=== PATIENT | female | born 1950 | race African-American/Black ===

== ENCOUNTER 2017-02-16 09:08 | Observation (INO) ==
--- NOTE | 2017-02-16 09:34 | Emergency Department Note ---
START Narrative - START START: I examined this patient and my medical decision-making was reviewed with the ROLLER SKATE ASSEMBLER/PA/Advanced Practice Nurse/Resident Physician. I agree with the documented findings, disposition and treatment plan as described except to the extent set forth below. The patient does have a history of atrial fibrillation however is not taking anticoagulation and presents per EMS. I did see the patient immediately upon arrival and also spoke with the paramedics. Did have a five-minute episode which started just after 8:00 which involved the left arm feelling like rubber, similar feelings the left leg and then she decided to start speaking and see if raad was abnormal and she did have slurred speech. She did have some lightheadedness during this period - max duration of symptoms was 5 minutes and she is almost 100% back to normal except for the fact that the left arm does still feel "funny". She is speaking normally without slurred speech, there is no drift of the arms or legs and she does have sensation intact. Finger to nose testing is equal and normal 2. Symptoms most consistent with TIA and patient does have tests ordered including labs, head CT. I did review her EKG which does show normal sinus rhythm with rate of 70 without acute ischemic change. 0932 CT scan does show possible infarct but no hemorrhage. The patient is admitted for further evaluation and management of TIA. Patient is not a thrombolytic candidate as the patient does have a stroke scale of 0 and subjectively symptoms have almost completely resolved 1116
[2017-02-16 09:43] LABS: Hematocrit 38.9 % (35.3-44.9); Hemoglobin 12.1 g/dL (11.5-15.4); Mean Corpuscular HGB Conc 31.1 g/dL (31.6-35.5); Mean Corpuscular Hemoglobin 24.2 pg (28.0-33.3); Mean Platelet Volume 9.9 fL (9.4-12.4); Platelet Count 256 K/mcL (140-400); Red Blood Count 4.99 M/mcL (3.82-4.97); Red Cell Distribution Width 15.3 % (11.5-14.5)
[2017-02-16 09:54] LABS: BUN/Creatinine Ratio 15 (6-26); Blood Urea Nitrogen 12 mg/dL (7-20); Calcium 8.6 mg/dL (8.6-10.8); Carbon Dioxide 25 mEq/L (19-29); Chloride 106 mEq/L (98-109); Glucose 119 mg/dL (70-99); Osmolality,Calculated 287 (280-300); Potassium 4.1 mEq/L (3.5-4.5); Sodium 138 mEq/L (136-145); eGFR For African Americans > 60 (> 60); eGFR For Non-African Americans > 60 (> 60)
--- NOTE | 2017-02-16 11:21 | Emergency Department Note ---
Disposition Clinical Impression: Cerebrovascular accident Qualifiers: CVA mechanism: unspecified Qualified Code(s): I63.9 - Cerebral infarction, unspecified Atrial fibrillation Qualifiers: Atrial fibrillation type: unspecified Qualified Code(s): I48.91 - Unspecified atrial fibrillation Disposition: Admitted As Inpatient Condition: Fair Neuro HPI - General Chief Complaint: ED Dizziness Stated Complaint: dizzy/weak x 5 mins Time Seen by Provider: 02/16/17 09:16 Source: patient, EMS Limitations: no limitations - History of Present Illness HPI Narrative: Mrs. Guzman is a 66-year-old female presents with left-sided weakness that began 8:00 this morning. Patient has weakness to left arm and left leg. Patient states that she attempted to lift her left arm and it felt like rubber following back and hitting her left leg. Patient spoke and noticed that she was slurring her words. She attempted to climb her stairs and fell as result of left leg weakness. Patient also admits right facial drooping. Patient called EMS was transported to the ED. She states that her symptoms have begun to resolve. Although, she has residual numbness to the left arm and left leg and residual weakness left arm and left leg. She denies any blurry vision or changes to vision. She is past medical history significant for A. fib that is untreated, cardiac murmur, hypertension, former smoker of 20 pack years. Her only medications are a daily baby aspirin. - Related Data Home Medications: Home Medications Medication Instructions Recorded Confirmed Aspirin Enteric Coated [Aspirin EC] 81 mg PO DAILY 02/24/16 02/16/17 Calcium Carbonate/Vitamin D3 1 tab PO DAILY 02/24/16 02/16/17 [Calcium 500+D Tablet Chew] Amlodipine Besylate 2.5 mg PO DAILY 02/16/17 02/16/17 Multivitamin [Multi-Day Vitamins] 1 tab PO DAILY 02/16/17 02/16/17 Allergies/Adverse Reactions: Allergies Allergy/AdvReac Type Severity Reaction Status Date / Time doxycycline Allergy Gastrointestinal Verified 02/24/16 16:45 Upset metoclopramide [From Reglan] Allergy Gastrointestinal Verified 02/24/16 16:45 Upset Penicillins Allergy Hives Verified 02/24/16 16:45 All systems ED: reviewed and negative except as stated. Constitutional: Reports: as per HPI Eyes: Reports: as per HPI ENT ED: Reports: as per HPI Cardiovascular: Reports: as per HPI Respiratory: Reports: as per HPI Gastrointestinal: Reports: as per HPI Genitourinary: Reports: as per HPI Musculoskeletal: Reports: as per HPI Integumentary: Reports: as per HPI Neurological: Reports: as per HPI Psychiatric: Reports: as per HPI Endocrine: Reports: as per HPI Hematological/Lymphatic: Reports: as per HPI Allergic/Immunologic: Reports: as per HPI Past Medical History - Past Medical History Medical history: Reports: atrial fibrillation, hypertension Psychiatric history: Reports: no psych history - Social History Smoking Status: Never smoker Smokeless Tobacco Status: No Alcohol use: Reports: none Drug use: Reports: none Physical Exam - General Limitations: no limitations General appearance: alert, in no apparent distress - Head Head exam: atraumatic, normocephalic - Eye Eye exam: Present: normal appearance, PERRL, EOMI - Neck Neck exam: Present: normal inspection, full ROM, trachea midline - Chest Chest inspection: Present: normal inspection, symmetric chest wall rise - Respiratory Respiratory exam: Present: normal lung sounds bilaterally. Absent: respiratory distress - Cardiovascular Cardiovascular exam: Present: irregular rhythm - Abdominal Exam Abdominal exam: Present: soft, Non-Tender - Neurological Exam Neurological exam: Present: alert, oriented X3, CN II-XII intact, motor sensory deficit, other (NIH stroke scale score is 0. ) - Expanded Neurological Exam Patient oriented to: Present: person, place, time Speech: Present: fluid speech Cranial nerves: EOM function (II, III, IV, ): Normal, facial sensation (V): Normal, facial palsy (VII): Normal, gag reflex (IX): Normal, spinal accessory function (XI): Normal, tongue deviation (XII): Normal Cerebellar function: finger to nose: Normal Motor strength - LUE: 3/5 Motor strength - RUE: 5/5 Motor strength - LLE: 3/5 Motor strength - RLE: 5/5 Upper motor neuron exam: Babinski sign: Absent bilaterally Sensory exam upper extremity: light touch: Abnormal Left Sensory exam lower extremity: light touch: Abnormal Left Coma Scale Eye Opening: Spontaneous Coma Scale Motor Response: Obeys Commands Coma Scale Verbal Response: Oriented Coma Scale Total: 15 - Psychiatric Psychiatric exam: Present: normal affect, normal mood - Skin Skin exam: Present: warm, dry, intact Course Vital Signs Temperature 98.4 F 02/16/17 09:09 Pulse Rate 77 02/16/17 09:09 Respiratory Rate 18 02/16/17 09:09 Blood Pressure 186/81 02/16/17 09:09 O2 Sat by Pulse Oximetry 98 02/16/17 09:09 Temperature 98.4 F 02/16/17 09:09 Pulse Rate 65 02/16/17 11:16 Respiratory Rate 18 02/16/17 12:23 Blood Pressure 159/76 02/16/17 12:23 O2 Sat by Pulse Oximetry 98 02/16/17 11:16 Oxygen Delivery Oxygen Delivery Room Air Neuro Symptoms/Deficit - MDM Narrative Medical decision making narrative: Patient does have left sided weakness on exam and CT head demonstrates a right parietal lobe infarct. Patient is not a candidate for TPA given her stroke scale score is 0. She will require admission for workup of etiology of CVA. She does have known A. fib which is untreated. There is concern that A. fib may have contributed to her CVA. - Lab Data Lab results reviewed: Yes I reviewed the patient's lab results. Result diagrams: 02/16/17 09:36 02/16/17 09:36 Lab Results 02/16/17 02/16/17 02/16/17 Range/Units 09:14 09:36 09:36 WBC (4.3-11.1) K/mcL RBC (3.82-4.97) M/mcL Hgb (11.5-15.4) g/dL Hct (35.3-44.9) % MCV (83.0-100.0) fL MCH (28.0-33.3) pg MCHC (31.6-35.5) g/dL RDW (11.5-14.5) % Plt Count (140-400) K/mcL MPV (9.4-12.4) fL Sodium 138 (136-145) mEq/L Potassium 4.1 (3.5-4.5) mEq/L Chloride 106 (98-109) mEq/L Carbon Dioxide 25 (19-29) mEq/L BUN 12 (7-20) mg/dL Creatinine 0.81 (0.57-1.11) mg/dL Est GFR ( Amer) > 60 (> 60) Est GFR (Non-Af Amer) > 60 (> 60) BUN/Creatinine Ratio 15 (6-26) Glucose 119 H (70-99) mg/dL POC Glucose 99 H (58-89) Est Mean Plasma Glucose mg/dl Hemoglobin A1c ( - 5.6) % Calculated Osmolality 287 (280-300) Calcium 8.6 (8.6-10.8) mg/dL Troponin I 0.00 (0-0.03) ng/mL 02/16/17 02/16/17 Range/Units 09:36 09:39 WBC 5.4 (4.3-11.1) K/mcL RBC 4.99 H (3.82-4.97) M/mcL Hgb 12.1 (11.5-15.4) g/dL Hct 38.9 (35.3-44.9) % MCV 78.0 L (83.0-100.0) fL MCH 24.2 L (28.0-33.3) pg MCHC 31.1 L (31.6-35.5) g/dL RDW 15.3 H (11.5-14.5) % Plt Count 256 (140-400) K/mcL MPV 9.9 (9.4-12.4) fL Sodium (136-145) mEq/L Potassium (3.5-4.5) mEq/L Chloride (98-109) mEq/L Carbon Dioxide (19-29) mEq/L BUN (7-20) mg/dL Creatinine (0.57-1.11) mg/dL Est GFR ( Amer) (> 60) Est GFR (Non-Af Amer) (> 60) BUN/Creatinine Ratio (6-26) Glucose (70-99) mg/dL POC Glucose (58-89) Est Mean Plasma Glucose 120 mg/dl Hemoglobin A1c 5.8 H ( - 5.6) % Calculated Osmolality (280-300) Calcium (8.6-10.8) mg/dL Troponin I (0-0.03) ng/mL - Radiology Data Radiology results reviewed: Yes I reviewed the patient's radiology results. Chest X-Ray 02/16/17 09:18 IMPRESSION: Mild left basilar atelectasis with no other acute cardiopulmonary findings. D/ / Raquel Dorsey MD / Raquel Dorsey MD Interpreting Provider: Raquel Dorsey MD Head CT 02/16/17 09:18 IMPRESSION: Minor low-density focus in the right parietal lobe could represent a small infarct. No evidence of hemorrhage. Brain MRI could be performed for confirmation if clinically warranted. D/ / Selvin Brandon MD / Selvin Brandon MD Interpreting Provider: Selvin Brandon MD - EKG Data EKG attestation: Yes I reviewed and interpreted this EKG. EKG results narrative: EKG normal sinus rhythm at a rate of 70 bpm. Left axis deviation. No ST segment changes to suggest ischemia. TPA Checklist - LKW: 3-4.5 hrs Add. Contraindications Patient/family understanding: The patient/family members have been counseled and understood the risk, benefit , and alternatives of treatment.
[2017-02-16] MEDS ORDERED: Naloxone 0.4 MG/ML INJ IVP PRN (11:36)
[2017-02-16] MEDS ORDERED: Ondansetron ODT 4 MG TAB.RAPDIS SL PRN (11:36)
[2017-02-16] MEDS ORDERED: Aspirin Enteric Coated 81 MG Tablet PO SCH (11:45)
[2017-02-16 12:03] LABS: Hemoglobin A1C 5.8 %
--- NOTE | 2017-02-16 12:22 | Internal Med History&Physical ---
<Rehman,Traci Luc - Last Filed: 02/16/17 12:19> Date of Encounter: 02/16/17 Time of Encounter: 12:19 Assessment and Plan (1) Cerebrovascular accident Current visit: Yes Status: Acute with one episode of right facial droop, left sided weakness and slurred speech. All symptoms resolved prior to arrival to ED. Head CT with possible right parietal infarct, no hemorrhage. Continue home ASA, and statin if needed. Brain MRI, echo, TSH LDL and Hgb A1c pending. Permissive HTN. Neurology consulted. Qualifiers: CVA mechanism: unspecified Qualified Code(s): I63.9 - Cerebral infarction, unspecified (2) PFO (patent foramen ovale) Current visit: Yes Status: Acute History of congenital heart defect repaired at 14 years old. 11/2015 echo with right left shunt consistent with PFO. Discussed with neurology and will hold anticoagulation at this time. Continue home aspirin. Repeat echo pending. CTS consulted. (3) Hypertension Current visit: Yes Status: Acute Per history. BP elevated in ED, we will continue to hold home BP medications to allow for permissive hypertension. Add when necessary IV for SBP greater than 200. Resume home BP meds and 24-48 hours. Qualifiers: Hypertension type: essential hypertension Qualified Code(s): I10 - Essential (primary) hypertension (4) DVT prophylaxis Current visit: Yes Status: Acute [facility] Internal Medicine - H&P: HPI Chief complaint: Left-sided weakness slurred speech and right facial droop Admitted From: Home Plans for Post Hospital Care: Home History of present illness: Ms. Guzman is a 66 year old female ast medical history hypertension and congenital heart defect who presented to [facility] on 2016 with with complaint of left-sided weakness slurred speech and right facial droop. Head CT showed possible parietal infarct. She was placed in observation for CVA workup and neurology consultation. Information obtained from chart review and patient report. Patient reports acute onset of left- sided weakness to left arm and left leg with slurred speech and right facial droop. This episode lasted for approximately 5 minutes, occurred at 0800 on day of presentation and all symptoms resolved prior to arrival. She also reports an episode of chest tightness located to left upper chest related 3 out of 10 at that time sensation did not radiate nothing made better or worse says tightness resolved on its own. All my exam she has no complaints she says she feels back to baseline specifically denies chest pain no shortness of breath no abdominal pain and nausea vomiting diarrhea no numbness tingling or weakness no blurred or double vision Past Med Surg Social Fam HX - Past Medical History Medical history: atrial fibrillation, hypertension Psychiatric history: no psych history - Past Surgical History Surgical History: other (Congenital heart defect repaired at 14 years old) - Social History Smoking Status: Never smoker Smokeless Tobacco Status: No Alcohol use: none Drug use: none Internal Medicine - H&P: Meds Aspirin Enteric Coated [Aspirin EC] 81 mg PO DAILY 02/24/16 [History] Calcium Carbonate/Vitamin D3 [Calcium 500+D Tablet Chew] 1 tab PO DAILY [History] Amlodipine Besylate 2.5 mg PO DAILY 02/16/17 [History] Multivitamin [Multi-Day Vitamins] 1 tab PO DAILY 02/16/17 [History] Allergies doxycycline Allergy (Verified 02/24/16 16:45) Gastrointestinal Upset metoclopramide [From Reglan] Allergy (Verified 02/24/16 16:45) Gastrointestinal Upset Penicillins Allergy (Verified 02/24/16 16:45) Hives All Systems PM: A 10-system review of systems was performed and is negative for pertinent findings except as documented above in the HPI. - Constitutional Constitutional: no chills, no fever(s), no night sweats - EENT Eyes: no change in vision, no discharge, no pain, no photophobia Ears: no ear discharge, no ear pain, no tinnitus Nose, mouth and throat: no dysphagia, no nasal discharge, no neck pain, no sore throat - Cardiovascular Cardiovascular ROS IM: no chest pain, no diaphoresis, no dyspnea, no lightheadedness, no palpitations, no syncope - Respiratory Respiratory: no cough, no dyspnea, no wheezing, no excessive phlegm production - Gastrointestinal Gastrointestinal: no abdominal pain, no diarrhea, no hematemesis, no hematochezia, no melena, no nausea, no vomiting - Genitourinary Genitourinary: no change in urinary stream, no dysuria, no flank pain, no hematuria - Musculoskeletal Musculoskeletal ROS IM: no numbness, no tingling - Integumentary Integumentary IM: no rash, no unusual bruising - Neurological Neurological ROS: no confusion, no convulsions, no focal weakness, no numbness, no tingling, no tremor(s) - Hematologic/Lymphatic Hematologic/Lymphatic: no easy bruising - Constitutional Vitals: Temp Pulse Resp BP Pulse Ox 98.4 F 65 18 160/72 98 02/16/17 09:09 02/16/17 11:16 02/16/17 11:16 02/16/17 11:16 02/16/17 11:16 General appearance: Present: A&O X 3, no acute distress - Head Head exam: Present: atraumatic, normocephalic - Eye Eye exam: Present: PERRL, conjuntiva pink, sclera anicteric Pupils: Present: PERRL - Neck Neck exam general surgery: Present: supple, trachea midline. Absent: lymphadenopathy - Respiratory Respiratory exam: Present: CTAB. Absent: accessory muscle use, rales, rhonchi, wheezes - Cardiovascular Cardiovascular exam: Present: RRR, +S1, +S2. Absent: diastolic murmur, gallop, rubs, systolic murmur - GI/Abdominal GI/Abdominal exam: Present: normal bowel sounds, soft, no peritoneal signs. Absent: distended, tenderness - Extremities Exam Extremities exam: Present: warm, radial pulses palpable and symetrical. Absent : calf tenderness, cyanotic, pedal edema - Neurological Exam Neurological exam: Present: CN II-XII intact, oriented X3, no focal deficits. Absent: pronater drift, facial droop, speech deficit - Skin Skin exam: Present: dry, intact Internal Med - H&P Results - Labs CBC & Chem 7: 02/16/17 09:36 02/16/17 09:36 - EKG Data -: EKG Interpreted by Myself EKG shows normal: sinus rhythm <Christopher Disla H - Last Filed: 02/16/17 12:59> Date of Encounter: 02/16/17 Internal Medicine - H&P: HPI History of present illness: Ms. Guzman is a 66 year old female All Systems PM: A 10-system review of systems was performed and is negative for pertinent findings except as documented above in the HPI. - Constitutional Vitals: Temp Pulse Resp BP Pulse Ox 98.4 F 65 18 159/76 98 02/16/17 09:09 02/16/17 11:16 02/16/17 12:23 02/16/17 12:23 02/16/17 11:16 Internal Med - H&P Results - Labs CBC & Chem 7: 02/16/17 09:36 02/16/17 09:36 - Attending Attestation 1) acute ischemic CVA possibly secondary to PFO Order MRI COnsult Cardiothoracic surgery ASA, consider anticoagulation. 2) HTN permissive HTN I examined this patient and my medical decision-making was reviewed with the COMMUNITY MENTAL HEALTH SOCIAL WORKER/PA/Advanced Practice Nurse/Resident Physician. I agree with the documented findings, disposition and treatment plan as described except to the extent set forth below.
[2017-02-16] MEDS ORDERED: Aspirin 81 MG TAB.CHEW PO ONE (12:38)
--- NOTE | 2017-02-16 14:22 | Electrocardiograph Report ---
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
--- NOTE | 2017-02-16 14:29 | Neurology - Consult Note ---
Date of Encounter: 02/16/17 Time of Encounter: 14:27 Assessment and Plan (1) Cerebrovascular accident Current Visit: Yes Status: Acute This patient has indeed suffered an acute right parietal lobe infarct. She does have a history of atrial fibrillation as well as patent foramen ovale and atrial septal defect. It is very possible that this may have been an embolic event. However her MRI scan suggests microvascular ischemic change and may have been due to small vessel disease. She does have a history of hypertension. He denies diabetes denies cigarette smoking. She does take an aspirin daily. Apparently a decision has been made to transfer her to the [facility] to consider repair of the atrial septal defect. Certainly risk factor management is paramount. She has been given an adult aspirin. She is currently awaiting a bed to be transferred to the [facility]. At this time she is awake alert and stable. The documentation in the history of HPI and plan were at least partially created by [employer] voice recognition technology by Dr. Santana. Errors in grammar, wording or other phrases may exist. If errors are found after the documentation signed, they will be addressed individually in the addendum section of this document when appropriate. Qualifiers: CVA mechanism: unspecified Qualified Code(s): I63.9 - Cerebral infarction, unspecified History of Present Illness HPI: Ms. Guzman is a 66 year old female who is being seen for neurologic consultation secondary to sudden onset numbness and paresthesias of the left face arm and leg. She does have a known congenital heart defect or believe she has a patent foramen ovale as well as an atrial septal defect. Symptoms were sudden in onset. Her blood pressure was 186/81. Does have a history of atrial fibrillation however is not on anticoagulation. Currently she is alert and oriented and still has some residual paresthesias in the left arm and leg however her strength has returned. She has a very mild headache. Denies diabetes, she is not smoking over 20 years. She only takes amlodipine for blood pressure. Apparently she has been seen by cardiothoracic surgeon and have recommended transferring her to [facility] for further intervention. 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 Past Med Surg Social Fam HX - Past Medical History Medical history: atrial fibrillation, hypertension Psychiatric history: no psych history - Past Surgical History Surgical History: coronary bypass (CABG), other - Social History Smoking Status: Never smoker Smokeless Tobacco Status: No Alcohol use: none Drug use: none - Family History Father Living Status: Hx Family Cardiac Disorders: Yes Hx Family Respiratory Disorders: No Hx Family Cancer: No Hx Family GI Disorders: No Hx Family Genitourinary Disorders: No Hx Family Endocrine Disorder: Yes Hx Family Musculoskeletal Disorders: No Hx Family Neuromuscular Disorders: No Hx Family Neurologic Disorders: No Hx Family HEENT Disorders: No Hx Family Autoimmune Disorders: No Hx Family Reproductive Disorders: No Hx Family Psychosocial Disorders: No Hx Family Medical Disorders: No Medications and Allergies Aspirin Enteric Coated [Aspirin EC] 81 mg PO DAILY 02/24/16 [History] Calcium Carbonate/Vitamin D3 [Calcium 500+D Tablet Chew] 1 tab PO DAILY [History] Amlodipine Besylate 2.5 mg PO DAILY 02/16/17 [History] Multivitamin [Multi-Day Vitamins] 1 tab PO DAILY 02/16/17 [History] Allergies doxycycline Allergy (Verified 02/24/16 16:45) Gastrointestinal Upset metoclopramide [From Reglan] Allergy (Verified 02/24/16 16:45) Gastrointestinal Upset Penicillins Allergy (Verified 02/24/16 16:45) Hives All Systems: A 10-system review of systems was performed and is negative for pertinent findings except as documented above in the HPI. Review of Systems: Review of systems is consistent with a history of present illness and otherwise negative. Physical Examination - Vital Signs Vital Signs: Initial Vital Signs Temp Pulse Resp BP Pulse Ox 98.4 F 77 18 186/81 98 02/16/17 09:09 02/16/17 09:09 02/16/17 09:09 02/16/17 09:09 02/16/17 09:09 - Neurologic Sensorimotor examination: other Detailed motor examination: full strength in all major muscle groups Motor examination - right side: 5/5: deltoids, biceps, triceps, wrist flexion, wrist extension, projection welding machine operator, hip flexors, tibialis Anterior, quadriceps, toe extension (EHL), plantarflexion Motor examination - left side: 5/5: deltoids, biceps, triceps, wrist flexion, wrist extension, hip flexors, projection welding machine operator, quadriceps, tibialis Anterior, toe extension (EHL), plantarflexion Detailed sensory examination: other (There is hemihypesthesia of the left face arm and leg.) Reflexes: Biceps: 2+ (Symmetrically), Triceps: 2+ (Symmetrically), Brachioradialis: 2+ (Symmetrical), Patella: 2+ (Symmetrically), Achilles: 2+ ( Symmetrically) Mental Status Examination: awake, alert, oriented to person, oriented to place, oriented to time, follows commands appropriately, answers questions appropriately, no agnosia, no aphasia, no aproxia Cranial nerve examination: PERRL, EOMI, visual knowles intact, corneal reflexes brisk symmetrically, sensory to face intact, mastication intact, no facial asymmetry is present, no dysarthria, hearing is intact symmetrically, soft palate elevates bilaterally upon phonation, gag reflex intact, flexes SCM and trapezius muscles symmetrically with full power, tongue protrudes midline, no atrophy or facial fasiculations present Cerebellar examination: no dysmetria, performs finger to nose and heel to starr symmetrically without ataxia, no gait ataxia, no truncal ataxia, no difficulty with rapid alternating movements Results - Laboratory Findings CBC and BMP: 02/16/17 09:36 02/16/17 09:36 Abnormal lab findings: Abnormal lab results RBC 4.99 M/mcL (3.82-4.97) H 02/16/17 09:36 MCV 78.0 fL (83.0-100.0) L 02/16/17 09:36 MCH 24.2 pg (28.0-33.3) L 02/16/17 09:36 MCHC 31.1 g/dL (31.6-35.5) L 02/16/17 09:36 RDW 15.3 % (11.5-14.5) H 02/16/17 09:36 Glucose 119 mg/dL (70-99) H 02/16/17 09:36 POC Glucose 99 (58-89) H 02/16/17 09:14 Hemoglobin A1c 5.8 % (-5.6) H 02/16/17 09:39 Consult Discharge Plan - Plan Referrals: Philippe Noble DO [Primary Care Provider] -
[2017-02-16 17:28] VITALS: BP 144/74
--- NOTE | 2017-02-16 18:23 | Discharge Summary ---
<Rehman,Cherry J - Last Filed: 02/16/17 18:30> Date of Encounter: 02/16/17 Time of Encounter: 18:21 - Discharge Diagnosis (1) Cerebrovascular accident Priority: Primary Status: Acute Comments: Assessment and Plan 1. Cerebrovascular accident: one episode of right facial droop, left sided weakness and slurred speech. All symptoms resolved prior to arrival to ED. Head CT with possible right parietal infarct, no hemorrhage. Brain MRI with small, right frontal lobe infarct. Evaluated by Neurology who noted possible microvascular etiology, also concerned for embolic source with hx PFO. ASA given on admission. Repeat echo pending at time of transfer. Will need Hgb A1c, TSH and lipid panel as well. Plan to transfer to [facility] 2. PFO (patent foramen ovale) Current visit: Yes Status: Acute History of congenital heart defect repaired at 14 years old. 11/2015 echo with right left shunt consistent with PFO. Discussed with neurology and will hold anticoagulation at this time. Continue home aspirin. Discussed case with Dr. Bustamante ([facility]) who recommended transfer to hospital that con preform minimally invasive repair if needed. 3. Hypertension Current visit: Yes Status: Acute Per history. BP elevated in ED, we will continue to hold home BP medications to allow for permissive hypertension. Add PRN IV for SBP greater than 200. Resume home BP meds and 24-48 hours. Qualifiers: CVA mechanism: other Qualified Code(s): I63.8 - Other cerebral infarction - Discharge Medications Home Medications: Aspirin Enteric Coated [Aspirin EC] 81 mg PO DAILY 02/24/16 [History] Calcium Carbonate/Vitamin D3 [Calcium 500+D Tablet Chew] 1 tab PO DAILY [History] Amlodipine Besylate 2.5 mg PO DAILY 02/16/17 [History] Multivitamin [Multi-Day Vitamins] 1 tab PO DAILY 02/16/17 [History] Allergies/Adverse Reactions: Allergies doxycycline Allergy (Verified 02/24/16 16:45) Gastrointestinal Upset metoclopramide [From Reglan] Allergy (Verified 02/24/16 16:45) Gastrointestinal Upset Penicillins Allergy (Verified 02/24/16 16:45) Hives Date of admission: 02/16/17 12:04 t Primary care physician: Allyn Sue Consults: 02/16/17 12:39 Consult to Cardiothoracic Surgery [CONS] Routine Consulting Provider: [facility] [place] Reason for Consult: PFO with new CVA Call Completed: Yes Consult to Neurology [CONS] Routine Consulting Provider: [facility]rology [facility] Reason for Consult: CVA Call Completed: Yes Discharging clinician: Cherry Rehman Anticipated date of discharge: 02/16/17 - Patient Status Disposition: Transfer Other Condition: Good Functional capacity at discharge: independent ambulation Overall status at discharge: patient is back to baseline - Discharge Instructions Follow Up With: Philippe Noble DO [Primary Care Provider] - Hospital course: Ms. Guzman is a 66 year old female PMH hypertension and congenital heart defect who presented to [facility] on 02/16/2017 with with complaint of left-sided weakness slurred speech and right facial droop. Head CT showed possible parietal infarct. MRI confirmed small, acute frontal lobe infarct. Previous echo from 11/2015 showed [id number] shunting consistent with PFO. CTS was consulted here at [place] A recommendation was to transfer to facility they could do minimally invasive repair if needed. She was transferred to [facility] for further neurological and CTS evaluation Time spent discussing smoking cessation with patient: more than 10 minutes - Time Spent with Patient Total time spent providing and/or coordinating discharge services: Greater than 30 minutes (40 min) - Constitutional Vitals: Temp Pulse Resp BP Pulse Ox 98.4 F 79 17 144/74 97 02/16/17 17:19 02/16/17 17:19 02/16/17 17:19 02/16/17 17:19 02/16/17 17:19 General appearance: Present: A&O X 3, no acute distress - Head Head exam: Present: atraumatic, normocephalic - Eye Eye exam: Present: PERRL, conjuntiva pink, sclera anicteric Pupils: Present: PERRL - Neck Neck exam general surgery: Present: supple, trachea midline. Absent: lymphadenopathy - Respiratory Respiratory exam: Present: CTAB. Absent: accessory muscle use, rales, rhonchi, wheezes - Cardiovascular Cardiovascular exam: Present: RRR, +S1, +S2. Absent: diastolic murmur, gallop, rubs, systolic murmur - GI/Abdominal GI/Abdominal exam: Present: normal bowel sounds, soft, no peritoneal signs. Absent: distended, tenderness - Extremities Exam Extremities exam: Present: warm, radial pulses palpable and symetrical. Absent : calf tenderness, cyanotic, pedal edema - Neurological Exam Neurological exam: Present: CN II-XII intact, oriented X3, no focal deficits. Absent: pronater drift, facial droop, speech deficit - Skin Skin exam: Present: dry, intact - Stroke Has Patient Been Evaluated by Rehab for Stroke: No Contraindication Rehab Services Not Assessed: Symptoms Resolved <Christopher Disla - Last Filed: 02/17/17 07:05> Date of Encounter: 02/17/17 Date of admission: 02/16/17 12:04 Primary care physician: Allyn Sue Consults: 02/16/17 12:39 Consult to Cardiothoracic Surgery [CONS] Routine Consulting Provider: [facility] [place] Reason for Consult: PFO with new CVA Call Completed: Yes Consult to Neurology [CONS] Routine Consulting Provider: Neurology [facility] Reason for Consult: CVA Call Completed: Yes Hospital course: Ms. Guzman is a 66 year old female - Time Spent with Patient Total time spent providing and/or coordinating discharge services: - Constitutional Vitals: Temp Pulse Resp BP Pulse Ox 98.4 F 79 17 144/74 97 02/16/17 17:19 02/16/17 17:19 02/16/17 17:19 02/16/17 17:19 02/16/17 17:19 - Attending Attestation 1) acute ischemic CVA possibly secondary to PFO ASA, consider anticoagulation. CT surgery recommended the patient to be transferred to [facility] for possibley ASD repair 2) HTN permissive HTN I examined this patient and my medical decision-making was reviewed with the COFFEE HOST/PA/Advanced Practice Nurse/Resident Physician. I agree with the documented findings, disposition and treatment plan as described except to the extent set forth below.
[2017-02-16 18:49] LABS: Thyroid Stimulating Hormone 0.714 mcIU/mL (0.350-4.840)
[2017-02-17] MEDS ORDERED: *HR* Enoxaparin 40 MG/0.4 ML SYRINGE SQ SCH (06:00)
[2017-02-17] MEDS ORDERED: Aspirin Enteric Coated 325 MG Tablet PO SCH (09:00)
[2017-02-17] MEDS ORDERED: Aspirin Enteric Coated 81 MG Tablet PO SCH (09:00)
--- NOTE | 2017-02-17 19:17 | Carotid Imaging Report ---
Carotid Duplex Patient Name:Vaishnavi Guzman Order Number:[id number] Procedure Date:02/16/2017 Date:1950ge:66 yrs Gender:Female Lt BP:159 / 76 mmHg Rt.BP:159 / 76 mmHgHeart Rate: Location:[facility] Room #: 2A33 Director Of Housing:Julia Tavares Referring MD:Cherry Rehman WILLOW ANALYST general warehouse worker:Philippe Noble, DO Reading MD:Darian Philippe MD Primary Indications:TIA w/hx of PAF,PFO, and CSOE Risk Factors Yes/No Hypertension Smoker Previous Impressions: Findings: Bilateral carotid system has nonstenotic plaque. Findings Carotid Duplex: Right: There is nonstenotic plaque in the right proximal internal carotid artery. There is irregular heterogeneous plaque. Left: There is nonstenotic plaque in the left distal common carotid artery. There is smooth heterogeneous plaque. Prior Study: No prior study available for comparison. Carotid Results Right PSV EDV Assessment Proximal CCA 107 23 Normal Mid CCA 135 26 Normal Distal CCA 78 23 Normal Bifurcation 64 19 Normal Proximal ICA 73 24 Non Stenotic Plaque Mid ICA 51 22 Normal Distal ICA 73 25 Normal ECA 81 16 Normal Vertebral Artery 60 20 Antegrade Flow Left PSV EDV Assessment Proximal CCA 83 25 Normal Mid CCA 66 20 Normal Distal CCA 60 23 Non Stenotic Plaque Bifurcation 59 21 Normal Proximal ICA 48 15 Normal Mid ICA 72 30 Normal Distal ICA 65 24 Normal ECA 69 18 Normal Vertebral Artery 43 12 Antegrade Flow Ratio's Right ICA/CCA Ratio: 0.54 ICA/CCA Values: 73/135 Left ICA/CCA Ratio: 1.09 ICA/CCA Values: 72/66 Updated by Darian Philippe MD on 02/17/2017 7:12:08 PM electronically signed on 02/17/2017 7:12:22 PM with status of Final
== END 2017-02-16 19:03 | disposition other institution (70) ==
LOC: 2ANU 09:08 → EMEROO 09:08 → 2ANU 12:42
PROVIDERS: ADMIT Registered Nurse; ATTEND Internal Medicine

== ENCOUNTER 2021-11-08 12:52 | Observation (INO) ==
[2021-11-08 17:35] LABS: Basophils # 0.1 K/mcL (0.0-0.2); Basophils % 1.2 %; Eosinophils # 0.1 K/mcL (0.0-0.6); Eosinophils % 1.9 %; Hematocrit 41.4 % (35.3-44.9); Hemoglobin 12.9 g/dL (11.5-15.4); Immature Granulocytes % 0.1 % (0-4); Lymphocytes # 1.9 K/mcL (0.6-4.6); Lymphocytes % 27.8 %; Mean Corpuscular HGB Conc 31.2 g/dL (31.6-35.5); Mean Corpuscular Hemoglobin 25.3 pg (28.0-33.3); Mean Corpuscular Volume 81.3 fL (83.0-100.0); Mean Platelet Volume 11.7 fL (9.4-12.4); Monocytes # 0.9 K/mcL (0.0-1.3); Monocytes % 13.5 %; Neutrophils # 3.8 K/mcL (1.6-8.9); Platelet Count 266 K/mcL (140-400); Red Blood Count 5.09 M/mcL (3.82-4.97); Red Cell Distribution Width 14.9 % (11.5-14.5); Segmented Neutrophils % 55.5 %; White Blood Count 6.8 K/mcL (4.3-11.1)
[2021-11-08 18:20] LABS: Alanine Aminotransferase 26 Units/L (7-52); Albumin 4.1 g/dL (3.5-5.7); Albumin/Globulin Ratio 1.6 (1.1-2.2); Alkaline Phosphatase 71 Units/L (34-104); Aspartate Amino Transferase 31 Units/L (13-39); BUN/Creatinine Ratio 14 (6-26); Bilirubin,Total 0.5 mg/dL (0.3-1.0); Blood Urea Nitrogen 11 mg/dL (8-23); Calcium 8.9 mg/dL (8.6-10.3); Chloride 102 mEq/L (98-107); Globulin 2.5 g/dL (2.4-3.5); Glucose 89 mg/dL (70-105); Osmolality,Calculated 285 (280-300); Potassium 4.5 mEq/L (3.5-5.1); Sodium 138 mEq/L (136-145); Total Protein 6.6 g/dL (6.4-8.9); eGFR For African Americans > 60 (> 60); eGFR For Non-African Americans > 60 (> 60)
[2021-11-08] MEDS ORDERED: Ondansetron 4 MG/2 ML VIAL IVP ONE (18:20)
[2021-11-08] MEDS ORDERED: 0.9 % Sodium Chloride 1,000 ML IVC ONE (18:20)
[2021-11-08 18:34] LABS: Troponin I < 0.03 ng/mL (< 0.04)
[2021-11-08 19:23] LABS: Bilirubin,Urine Negative (Negative); Blood,Urine Negative (Negative); Clarity,Urine Clear (Clear); Color,Urine Light-Yellow (Yellow); Glucose,Urine (UA) Normal (Normal); Ketones,Urine Negative (Negative); Leukocyte Esterase,Urine Negative (Negative); Nitrite,Urine Negative (Negative); PH,Urine 6.5 pH Units (5.0-8.0); Protein,Urine Negative (Neg-Trace); Specific Gravity,Urine 1.009 (1.010-1.025); Urobilinogen,Urine Normal (Normal)
[2021-11-08 19:44] LABS: Amphetamine Screen,Urine Negative ng/mL (Cutoff=1000); Barbiturate Screen,Urine Negative ng/mL (Cutoff=200); Benzodiazepines Screen,Urine Negative ng/mL (Cutoff=200); Cannabinoid Screen,Urine Negative ng/mL (Cutoff = 50); Cocaine Screen,Urine Negative ng/mL (Cutoff= 300); Opiate Screen,Urine Negative ng/mL (Cutoff=300); Phencyclidine Screen,Urine Negative ng/mL (Cutoff=25)
[2021-11-08 20:25] LABS: Carbon Dioxide 28 mEq/L (23-29)
[2021-11-08] MEDS ORDERED: Isovue-370 500 ML BOTTLE IVP ONE (20:33)
[2021-11-08] MEDS ORDERED: Perflutren Lipid Microsphere 1.3 ML in 0.9 % Sodium Chloride 8.7 ML IVP PRN (21:59)
[2021-11-08] MEDS ORDERED: Acetaminophen 325 MG TABLET PO PRN (22:06)
[2021-11-08] MEDS ORDERED: Naloxone 0.4 MG/ML INJ IVP PRN (22:06)
[2021-11-08] MEDS ORDERED: Prochlorperazine 10 MG/2 ML VIAL IVP PRN (22:11)
[2021-11-08] MEDS ORDERED: Aspirin Enteric Coated 81 MG Tablet PO STA (23:51)
[2021-11-09 06:02] LABS: Hematocrit 38.7 % (35.3-44.9); Hemoglobin 12.2 g/dL (11.5-15.4); Mean Corpuscular HGB Conc 31.5 g/dL (31.6-35.5); Mean Corpuscular Hemoglobin 25.6 pg (28.0-33.3); Mean Corpuscular Volume 81.1 fL (83.0-100.0); Platelet Count 227 K/mcL (140-400); Red Blood Count 4.77 M/mcL (3.82-4.97); Red Cell Distribution Width 15.1 % (11.5-14.5); White Blood Count 5.9 K/mcL (4.3-11.1)
[2021-11-09 06:19] LABS: INR 1.1; Prothrombin Time 12.6 Seconds (9.4-12.1)
[2021-11-09 06:22] LABS: Activated Partial Thrombo Time 38.1 Seconds (26.0-36.0)
[2021-11-09 06:25] LABS: BUN/Creatinine Ratio 17 (6-26); Blood Urea Nitrogen 12 mg/dL (8-23); Calcium 8.7 mg/dL (8.6-10.3); Carbon Dioxide 27 mEq/L (23-29); Chloride 106 mEq/L (98-107); Glucose 86 mg/dL (70-105); Magnesium 1.8 mg/dL (1.6-2.6); Osmolality,Calculated 293 (280-300); Potassium 4.3 mEq/L (3.5-5.1); Sodium 142 mEq/L (136-145); eGFR For African Americans > 60 (> 60); eGFR For Non-African Americans > 60 (> 60)
[2021-11-09 06:35] LABS: Thyroid Stimulating Hormone 0.886 mcIU/mL (0.340-5.600)
[2021-11-09] MEDS ORDERED: Aspirin 325 MG TABLET PO SCH (09:00)
[2021-11-09 10:08] VITALS: BP 144/75; PULSE 73; TEMP 97.5; O2SAT 95
[2021-11-09 10:18] LABS: Estimated Average Glucose 137 mg/dl; Hemoglobin A1C 6.4 %
[2021-11-09] MEDS ORDERED: *HR* Heparin 5,000 UNIT/ML VIAL SQ SCH (18:00)
[2021-11-10 12:11] LABS: ABG Base Excess 2 mEq/L (-2 to 3); ABG HCO3 27 mEq/L (21-27); ABG Oxygen Saturation 92 % (95-98); ABG PCO2 43 mmHg (35-45); ABG PO2 64 mmHg (85-104); ABG TCO2 28 mEq/L (20-26)
== END 2021-11-09 12:33 | disposition home or self-care (01) ==
LOC: 3BNU 12:52 → EMEROOARM 12:52 → SUATTDRO 20:33 → 3BNU 20:45
PROVIDERS: ADMIT Internal Medicine; ATTEND Internal Medicine